=== PATIENT | male | born 1980 | race African-American/Black ===

== ENCOUNTER 2018-04-14 16:55 | Emergency (ER) | payer OTHER, MEDICARE ==
[2018-04-14] MEDS: NAPROXEN 500 MG TABLET PO (18:01)
== END 2018-04-14 18:49 | disposition home or self-care (01) ==
LOC: ER 16:55
DX: S29.012A Strain of muscle and tendon of back wall of thorax, initial encounter (principal); S16.1XXA Strain of muscle, fascia and tendon at neck level, initial encounter; V49.9XXA Car occupant (driver) (passenger) injured in unspecified traffic accident, initial encounter; Y93.89 Activity, other specified; Y92.89 Other specified places as the place of occurrence of the external cause; Y99.8 Other external cause status
CPT/HCPCS: 72072; 72125; 99284